=== PATIENT | male | born 1980 | race Caucasian/White ===

== ENCOUNTER 2024-01-10 03:48 | Outpatient (CLI) | payer BC, SELFPAY ==
[2024-01-10 11:38] LABS: PTT Activated 28.8 sec (23.6-32.8)
[2024-01-10 18:07] LABS: Fibrinogen 328 mg/dL (171-384)
[2024-01-11 10:49] LABS: Thrombin Time 13.8 secs (10.3-16.9)
[2024-01-11 10:59] LABS: Factor 11 Assay 83 % (65-150); Factor 2 Assay 106 % (79-131); Factor 5 Assay 115 % (62-139); Factor 9 Assay 116 % (65-150)
[2024-01-11 13:07] LABS: Factor 10 Assay 108 % (77-131)
[2024-01-12 11:56] LABS: Coag FactorVIII Activity Assay 123 % (55 - 200); von Willebrand Factor Activity 73 % (55 - 200); von Willebrand Factor Ag 82 % (55 - 200)
[2024-01-23 09:27] LABS: Factor 13 Antigen 107.2 % (57.1-168.5)
== END 2024-01-10 03:49 | disposition home or self-care (01) ==
PROVIDERS: Visit Provider Internal Medicine Hematology & Oncology
DX: R79.1 Abnormal coagulation profile (principal)
CPT/HCPCS: 36415; 85240; 85246; 85290; 85384; 85385; 85390; 85397; 85670; 85210; 85250; 85260; 85270; 85610; 85730

== ENCOUNTER 2024-01-19 03:41 | PSDC | payer BC, SELFPAY ==
[2024-01-19] VITALS (90 sets, daily range): BP systolic 123–199; BP diastolic 74–147; PULSE 43–73; RESP 8–31; TEMP 36–36.9; O2SAT 89–100; BMI 22.8
--- NOTE | 2024-01-19 03:45 | DI.CT_ITS ---
Exam(s) CT ABDOMEN PELVIS WO EXAM: CT ABDOMEN PELVIS WO CLINICAL HISTORY: suspect right kidney stone. Right flank pain. TECHNIQUE: Imaging Protocol: Axial computed tomography images with coronal and sagittal reformatted images were created and reviewed. COMPARISON: No exams were available for comparison FINDINGS: ABDOMEN: Lung Bases: There is atelectasis in the right lower lobe. Liver: Normal density. The visualized liver is unremarkable. Gallbladder and biliary tract: No radiodense calculus or biliary ductal dilation. Pancreas: Normal density, no abnormal calcifications or inflammatory process. Spleen: The visualized spleen is unremarkable. Kidneys: Normal size, contour and axis.There is bilateral nephrolithiasis. No evidence of left hydro nephrosis. There is a 5 mm stone in the mid right ureter with mild hydronephrosis. There is an inde terminate 6 mm hypodensity in the left kidney. This may represent a cyst. Nonemergent renal ultraso und may be obtained for further evaluation. Adrenal glands: No mass is seen. Lymph nodes: Within normal limits. Abdominal Aorta: Abdominal portion non-dilated. PELVIS: Bladder:Symmetric distention, no gross wall thickening. Bowel: There are few diverticula in the colon, but no evidence of acute diverticulitis. There is a m oderate amount of retained stool in the colon. There are surgical clips seen in the cecum. There is no evidence of bowel obstruction or bowel wall thickening. Peritoneal cavity: No ascites, collection or mesenteric inflammatory response. No free air. Reproductive organs: Unremarkable as visualized. Bones: Within normal limits. Soft Tissues: Within normal limits. IMPRESSION: 5 mm stone in the mid right ureter causing mild hydronephrosis. RADIATION DOSE DELIVERED: Total DLP DATA REPOSITORY: All CT scans at this facility are submitted to the National Radiology Data Registry (NRDR) Dose Index Registry (DIR) with the [employer] (ACR). RADIATION OPTIMIZATION: All CT scans at this facility use at least one of these dose optimization te chniques: automated exposure control; mA and/or kV adjustment per patient size (includes targeted exa ms where dose is matched to clinical indication); or iterative reconstruction.
[2024-01-19] MEDS: MORPHine 4 MG/ML SYR IVP (03:57)
[2024-01-19] MEDS: Ondansetron 4 MG/2 ML VIAL IVP (03:58)
[2024-01-19] MEDS: Normal Saline 1,000 ML 1000 ML IV ×2 (03:58→07:33)
[2024-01-19] MEDS: Tamsulosin 0.4 MG CAPCR 0.8 MG PO (03:58)
[2024-01-19 03:59] LABS: Abs Immature Grans 0.01 10^3/uL (0.0-0.06); Absolute Basophil Count 0.04 10^3/uL (0.0-0.2); Absolute Eosinophil Count 0.16 10^3/uL (0.0-0.7); Absolute Lymphocyte Count 3.17 10^3/uL (1.2-3.4); Absolute Monocyte Count 0.66 10^3/uL (0.1-0.8); Absolute Neutrophil Count 2.08 10^3/uL (1.2-6.7); Basophils % 0.7 %; Eosinophils % 2.6 %; HCT 44.5 % (40.0-50.0); HGB 15.1 g/dL (13.5-17.5); Immature Grans % 0.2 %; Lymphocytes % 51.8 %; MCH 30.7 pg (27.0-33.0); MCHC 33.9 % (32.0-36.0); MCV 90 fL (80-95); MPV 9.7 fL (8.0-11.0); Monocytes % 10.8 %; Neutrophils % 33.9 %; Platelet Count 292 10^3/uL (130-400); RBC 4.92 10^6/uL (4.36-5.78); RDW 11.3 % (11.8-14.1); RDW-SD 37.4 fL; WBC 6.12 10^3/uL (4.4-10.8)
[2024-01-19 04:12] LABS: ALT 25 U/L (16-63); AST 30 U/L (15-37); Albumin 3.6 g/dL (3.4-5.0); Alkaline Phosphatase 74 U/L (46-116); Anion Gap 7.4 mmol/L (3-11); Bilirubin, Total 0.35 mg/dL (0.2-1.0); CO2 30.6 mmol/L (21.0-32.0); Calcium 8.9 mg/dL (8.5-10.1); Chloride 102 mmol/L (98-107); Estimated GFR 96.37 (mL/min/1.73m2); Glucose 107 mg/dL (74-106); Potassium 3.8 mmol/L (3.5-5.1); Sodium 140 mmol/L (136-145); Total Protein 7.1 g/dL (6.4-8.2)
[2024-01-19 04:18] LABS: BUN 16 mg/dL (7-18)
--- NOTE | 2024-01-19 04:24 | ED.GENADUL_ITS ---
Discharge Plan Disposition Patient Disposition: Admit to [facility] Condition: Stable Discharge Details Clinical Impression: Kidney stone on right side Primary Care Provider: Unknown,Unknown ED Provider: Charanjit Christensen Home Meds and New Rx's Prescriptions: No Action dextroamphetamine-amphetamine [Adderall] 15 mg tablet 15 mg PO BID Rx Instructions: administer doses at least 4-6 hours apart buprenorphine [Butrans] 10 mcg/hour patch weekly 1 patch transdermal Q7D HPI General Date/Time Provider Initiated Documentation: 01/19/24 03:47 . HPI Narrative: This is a 43-year-old male with a past medical history of chronic back pain scheduled to get a fusion of his spine, Crohn's disease, inguinal hernia with surgical management, appendectomy, cholecystectomy, previous kidney stone, who usually receives his care at the [facility], but recently moved to the area, presents today via EMS for right flank pain. Patient states that he awoke this evening with sudden onset right flank pain that radiates down to his right groin and genitals. He states that the pain feels similar to when he had his previous kidney stone. He denies any hematuria frequency or burning. He denies vomiting or diarrhea. He states that the pain is constant and severe. He denies numbness tingling or weakness. No urethral discharge. No other complaints at this time. Related Data Home Medications ?Medication ?Instructions ?Recorded ?Confirmed buprenorphine 10 mcg/hour weekly 1 patch transdermal Q7D 01/19/24 01/19/24 transdermal patch (Butrans) dextroamphetamine-amphetamine 15 15 mg PO BID 01/19/24 01/19/24 mg tablet (Adderall) Allergies Allergy/AdvReac Type Severity Reaction Status Date / Time Androgenic Anabolic Steroid Allergy Unknown Verified 01/19/24 05:02 Neuromuscular Blockers, Allergy Unknown Verified 01/19/24 05:02 Steroidal NSAIDS (Non-Steroidal Allergy Unknown Verified 01/19/24 05:02 Anti-Inflamma Sulfa (Sulfonamide Allergy Unknown Verified 01/19/24 05:02 Antibiotics) General Stated Complaint: FlankPain LORETTA: 3 Review of Systems All systems reviewed & are unremarkable except as noted in HPI and below Exam Narrative Exam Narrative: 1.Const: Well-nourished, Well-developed, appearing stated age 2.Eyes: PERRL, no conjunctival injection, and symmetrical lids. 3.ENT: Atraumatic external nose and ears. Moist MM. Neck: Symmetric, trachea midline, No thyromegaly. 4.CVS: +S1/S2, No murmurs or gallops. Peripheral pulses 2+ and equal in all extremities. Brisk capillary refill in all extremities. 5.RESP: Unlabored respiratory effort. Clear to auscultation bilaterally. No wheezes rales or rhonchi 6.GI: Soft, Nontender/Nondistended, No hepatosplenomegaly. No guarding or rebound. No right-sided or left-sided abdominal tenderness. No genital pain or tenderness on palpation. Testicles are unremarkable, penile shaft unremarkable. No urethral discharge. 7.MSK: Normocephalic/Atraumatic, Extremities w/o deformity or ttp No cyanosis or clubbing, Normal movement of all extremities 8.Skin: Warm, Dry. No rashes or lesions. 9.Neuro: systems coordinator II-XII grossly intact. Sensation grossly intact, no focal neurologic deficits. 10.Psych: (AAO) x3. Appropriate mood and affect Course Vital Signs Vital signs: Vital Signs Temperature 36.4 C L 01/19/24 03:42 Pulse 64 01/19/24 03:42 Respiratory Rate 16 01/19/24 03:42 Blood Pressure 149/75 H 01/19/24 03:42 Pulse Oximetry 100 01/19/24 03:42 Temperature 36.4 C L 01/19/24 03:42 Pulse 64 01/19/24 03:42 Respiratory Rate 16 01/19/24 03:42 Respiratory Effort Normal 01/19/24 03:47 Blood Pressure 149/75 H 01/19/24 03:42 Pulse Oximetry 100 01/19/24 03:42 Oxygen Delivery Method Room Air 01/19/24 03:42 Oxygen Flow Rate 0 01/19/24 03:42 Pain Level 10 01/19/24 03:42 Lab/Test Results Lab/Test Results: Laboratory Tests Range/Units 01/19/24 03:51 WBC (4.4-10.8) 10^3/uL 6.12 RBC (4.36-5.78) 10^6/uL 4.92 Hgb (13.5-17.5) g/dL 15.1 Hct (40.0-50.0) % 44.5 MCV (80-95) fL 90 MCH (27.0-33.0) pg 30.7 MCHC (32.0-36.0) % 33.9 RDW (11.8-14.1) % 11.3 L Plt Count (130-400) 10^3/uL 292 MPV (8.0-11.0) fL 9.7 Immature Gran % % 0.2 Neutrophils % % 33.9 Lymphocytes % % 51.8 Monocytes % % 10.8 Eosinophils % % 2.6 Basophils % % 0.7 Nucleated RBC % (0.0-0.3) % 0.0 Absolute Neutrophils (1.2-6.7) 10^3/uL 2.08 Absolute Lymphocytes (1.2-3.4) 10^3/uL 3.17 Absolute Monocytes (0.1-0.8) 10^3/uL 0.66 Absolute Eosinophils (0.0-0.7) 10^3/uL 0.16 Absolute Basophils (0.0-0.2) 10^3/uL 0.04 Sodium (136-145) mmol/L 140 Potassium (3.5-5.1) mmol/L 3.8 Chloride (98-107) mmol/L 102 Carbon Dioxide (21.0-32.0) mmol/L 30.6 Anion Gap (3-11) mmol/L 7.4 BUN (7-18) mg/dL 16 Creatinine (0.70-1.30) mg/dL 1.0 Est GFR (CKD-EPI 2020) (mL/min/1.73m2) 96.37 Glucose (74-106) mg/dL 107 H Calcium (8.5-10.1) mg/dL 8.9 Total Bilirubin (0.2-1.0) mg/dL 0.35 AST (15-37) U/L 30 ALT (16-63) U/L 25 Alkaline Phosphatase (46-116) U/L 74 Total Protein (6.4-8.2) g/dL 7.1 Albumin (3.4-5.0) g/dL 3.6 Medical Decision Making This is a 43-year-old male with a past medical history of chronic back pain scheduled to get a fusion of his spine, Crohn's disease, inguinal hernia with surgical management, appendectomy, cholecystectomy, previous kidney stone, who usually receives his care at the [facility], but recently moved to the area, presents today via EMS for right flank pain. Patient states that he awoke this evening with sudden onset right flank pain that radiates down to his right groin and genitals. He states that the pain feels similar to when he had his previous kidney stone. He denies any hematuria frequency or burning. He denies vomiting or diarrhea. He states that the pain is constant and severe. He denies numbness tingling or weakness. No urethral discharge. No other complaints at this time. Exam demonstrates male that is in pain, vital signs stable, no abdominal tenderness on exam, no genital tenderness. Symptoms most concerning for urolithiasis. Will give Flomax, Toradol, morphine, rehydrate, get a CT scan monitor closely and reassess. 6:30 AM Laboratory workup shows stable renal function, no white count, urinalysis is negative for infection. CT scan shows evidence of a 6 mm obstructing stone in the mid right ureter causing mild obstructive uropathy. Pain was not controlled with Tylenol/Jai Mab for Flomax. Patient refused Toradol as he states he does have an allergy. Dilaudid was administered with only mild pain improvement. We will administer a second episode of Dilaudid for total of 2 mg. Patient has urinated, there is a very small garo that came out, but certainly no 6 mm stone. I did discuss the case with Dr. Lerma of urology, we will continue to attempt to manage the pain control, but if we cannot find good resolution for this, and the patient may require stenting. 7:30 AM Patient still has notable pain even after 2 mg of Dilaudid, Ofirmev and Flomax. He does not feel comfortable going home. I discussed the case with Dr. Lerma, he has elected to place a stent for the patient. Patient will remain down here in the emergency department until he can be dispositioned to the OR for stent placement. I have extensively reviewed the treatment plan with the patient. I have addressed all patient concerns at this time. I have also discussed the plan with the admitting physician and they agree with the current assessment and plan and have agreed to assume responsibility for the patient. All parties demonstrate verbal understanding and agreement with our assessment and plan at this time. The documentation in this chart was dictated using Pad[employer] dictation software. Please excuse any dictation errors. FINDINGS: Liver: Normal. No mass. Gallbladder and biliary ducts: Normal. No calcified stones. No ductal dilation. Pancreas: Unremarkable. Spleen: Normal. Adrenal glands: Normal. No mass. Kidneys and ureters: Small incidental left renal cyst. 6 mm obstructing stone in the mid right ureter causing mild obstructive uropathy. Nonobstructing stones in the kidneys bilaterally. Stomach and bowel: Chronic postsurgical changes of the bowel. Stool throughout the colon, minimally distended, potentially signifying constipation. No bowel wall thickening or intestinal obstruction. Appendix: Appendix not visualized. No evidence of appendicitis. Intraperitoneal space: Unremarkable. No pneumoperitoneum. No abscess. Vasculature: Unremarkable. Lymph nodes: Unremarkable. Urinary bladder: Unremarkable as visualized. Reproductive: Unremarkable as visualized. Bones/joints: Unremarkable. No acute fracture. Soft tissues: Unremarkable. IMPRESSION: 1. 6 mm obstructing stone in the mid right ureter causing mild obstructive uropathy. 2. Stool throughout the colon, minimally distended, potentially signifying constipation. Thank you for allowing us to participate in the care of your patient. Dictated and Authenticated by: Juan Cabral MD 01/19/2024 5:33 AM Eastern Time ([place] & [place]) Quality:SDOH Health Related Social Needs: No Data to Display PFSH All Active Problems (Updated 01/19/24 @ 07:23 by Charanjit Christensen DO) Kidney stone on right side (Acute) Social History Smoking risk assessment performed?: No
[2024-01-19] MEDS: HYDROmorphone 2 MG/ML SYR 1 MG IVP ×2 (04:57→06:33)
[2024-01-19] MEDS: ACETAMINOPHEN 1,000 MG/100 ML BTL 400 MG IVPB (04:57)
[2024-01-19 05:11] LABS: Bilirubin Negative (Negative); Blood Moderate (Negative); Clarity Clear (Clear); Glucose Negative (Negative); Ketones Negative (Negative); Leukocyte Esterase Negative (Negative); Nitrite Negative (Negative); Urobilinogen 0.2 mg/dL (Up to 0.2); pH 7.5 (5-8)
[2024-01-19 05:13] LABS: Bacteria Rare HPF (Negative); C & S Indicated? No; Casts Negative LPF (Negative); Crystals Negative HPF (Negative); Epithelial Cells Rare HPF (Negative); Mucus Negative (Negative); WBC Negative HPF (0-5)
--- NOTE | 2024-01-19 05:33 | DI.VRAD_ITS ---
PROCEDURE INFORMATION: Exam: CT Abdomen And Pelvis Without Contrast Exam date and time: 01/19/2024 4:10 AM Age: 43 years old Clinical indication: Abdominal pain; Flank; Right; Additional info: Suspect right kidney stone. Right flank pain TECHNIQUE: Imaging protocol: Computed tomography of the abdomen and pelvis without contrast. COMPARISON: No relevant prior studies available. FINDINGS: Liver: Normal. No mass. Gallbladder and biliary ducts: Normal. No calcified stones. No ductal dilation. Pancreas: Unremarkable. Spleen: Normal. Adrenal glands: Normal. No mass. Kidneys and ureters: Small incidental left renal cyst. 6 mm obstructing stone in the mid right ureter causing mild obstructive uropathy. Nonobstructing stones in the kidneys bilaterally. Stomach and bowel: Chronic postsurgical changes of the bowel. Stool throughout the colon, minimally distended, potentially signifying constipation. No bowel wall thickening or intestinal obstruction. Appendix: Appendix not visualized. No evidence of appendicitis. Intraperitoneal space: Unremarkable. No pneumoperitoneum. No abscess. Vasculature: Unremarkable. Lymph nodes: Unremarkable. Urinary bladder: Unremarkable as visualized. Reproductive: Unremarkable as visualized. Bones/joints: Unremarkable. No acute fracture. Soft tissues: Unremarkable. IMPRESSION: 1. 6 mm obstructing stone in the mid right ureter causing mild obstructive uropathy. 2. Stool throughout the colon, minimally distended, potentially signifying constipation. Dictated and Authenticated by: Juan Cabral MD. Ordering:SARABJIT Donohue MD
--- NOTE | 2024-01-19 07:49 | HPE_ITS ---
Date of service: 01/19/24 Time of Service: 07:49 Assessment and Plan Assessment and plan (1) Kidney stone on right side: Status: Acute Assessment and plan: We have not been able to achieve adequate pain control for this gentleman, so we will bring him to the OR for cystoscopy and stent placement. We will not attempt ureteroscopy today, but we will plan a return trip to the OR for ureteroscopy and holmium laser lithotripsy of his stone. History of Present Illness History of Present Illness Chief Complaint: Right ureteral stone Narrative: This is a 43-year-old gentleman who has a recently moved to our area. He has previously received his medical care through the [facility] system. He has a history of Crohn's disease and urolithiasis. He has required ureteral stenting in the past, but has not required ureteroscopy. He presented to the emergency department overnight with an acute onset of right sided flank pain. He has no fever or chills. His imaging demonstrates multiple nonobstructing stones along with a 6 mm mid right ureteral stone that is causing significant obstruction. He has not shown any signs of sepsis or renal failure, but we have not been able to get pain control. He is agreeable to placement of a ureteral stent with plans to return to the OR for ureteroscopy and holmium laser lithotripsy of his stones at a later date. Review of Systems Narrative: No fevers or chills No vision change or dysphasia No diabetes or thyroid dysfunction No shortness of breath, cough or hemoptysis No chest pain or palpitations No hepatitis, ulcers, jaundice No seizures or strokes Bleeding disorder - no specific diagnosis yet Chronic back pain - will need back surgery at [facility]. [facility] All Active Problems (Updated 01/19/24 @ 07:52 by Vinh Lerma MD) Kidney stone on right side (Acute) Medical History (Updated 01/19/24 @ 07:52 by Vinh Lerma MD) Chronic back pain Bleeding disorder Crohn's disease Surgical History (Updated 01/19/24 @ 07:57 by Vinh Lerma MD) H/O inguinal hernia repair S/P cystoscopy with ureteral stent placement Hx of cholecystectomy History of appendectomy Social History Smoking risk assessment performed?: No Meds Allergies and Home Medications Allergies Allergy/AdvReac Type Severity Reaction Status Date / Time Androgenic Anabolic Steroid Allergy Unknown Verified 01/19/24 05:02 Neuromuscular Blockers, Allergy Unknown Verified 01/19/24 05:02 Steroidal NSAIDS (Non-Steroidal Allergy Unknown Verified 01/19/24 05:02 Anti-Inflamma Sulfa (Sulfonamide Allergy Unknown Verified 01/19/24 05:02 Antibiotics) Home Medications ?Medication ?Instructions ?Recorded ?Confirmed ?Type buprenorphine 10 mcg/hour weekly 1 patch transdermal Q7D 01/19/24 01/19/24 History transdermal patch (Butrans) dextroamphetamine-amphetamine 15 15 mg PO BID 01/19/24 01/19/24 History mg tablet (Adderall) Exam Narrative Exam Narrative: He appears uncomfortable His vital signs are documented elsewhere His chest wall motion is normal. He is not short of breath at rest. His lungs are clear Cardiac exam shows a regular rate and rhythm His abdomen is soft with no guarding or rebound tenderness He is awake and alert Results Imaging Imaging Studies: I reviewed his CT scan on the PACS system. He has multiple nonobstructing stones in both kidneys. There is a relatively large stone in the mid right ureter with significant hydronephrosis. Labs 01/19/24 03:51 01/19/24 03:51 Labs: Laboratory Results - last 24 hr 01/19/24 01/19/24 03:51 04:57 WBC 6.12 RBC 4.92 Hgb 15.1 Hct 44.5 MCV 90 MCH 30.7 MCHC 33.9 RDW 11.3 L Plt Count 292 MPV 9.7 Immature Gran % 0.2 Neutrophils % 33.9 Lymphocytes % 51.8 Monocytes % 10.8 Eosinophils % 2.6 Basophils % 0.7 Nucleated RBC % 0.0 Absolute Neutrophils 2.08 Absolute Lymphocytes 3.17 Absolute Monocytes 0.66 Absolute Eosinophils 0.16 Absolute Basophils 0.04 Sodium 140 Potassium 3.8 Chloride 102 Carbon Dioxide 30.6 Anion Gap 7.4 BUN 16 Creatinine 1.0 Est GFR (CKD-EPI 2020) 96.37 Glucose 107 H Calcium 8.9 Total Bilirubin 0.35 AST 30 ALT 25 Alkaline Phosphatase 74 Total Protein 7.1 Albumin 3.6 Urine Color Yellow Urine Clarity Clear Urine pH 7.5 Ur Specific [place] 1.020 Urine Protein Negative Urine Ketones Negative Urine Blood Moderate H Urine Nitrite Negative Urine Bilirubin Negative Urine Urobilinogen 0.2 Ur Leukocyte Esterase Negative Urine RBC 5-10 H Urine WBC Negative Ur Epithelial Cells Rare Urine Crystals Negative Urine Bacteria Rare Urine Casts Negative Urine Mucus Negative Ur Culture Indicated? No Urine Glucose Negative Last Vital Signs Temp 36.4 C L 01/19/24 03:42 Pulse 64 01/19/24 03:42 Resp 16 01/19/24 03:42 BP 149/75 H 01/19/24 03:42 Pulse Ox 100 01/19/24 03:42 Time Spent Time spent with Patient: <40 minutes Time was spent: preparing to see the patient(eg.review tests), obtaining and/or reviewing separately otained hiistory, ordering medications,tests, procedures, referring, communicating with other health career development specialist, indepentently interpreting results and care coordination
--- NOTE | 2024-01-19 07:53 | ANES.PREOP_ITS ---
General Info Date of Service Date Performed: 01/19/24 Height: 5 ft 9 in Weight: 70.307 kg Body Mass Index (BMI): 22.8 Surgical Procedure: Operation Date: 01/19/24 09:10 Proposed Procedure Side Surgeon p Cystoscopy/Retrograde/Stent Placement Right Vinh Lerma MD Meds Allergies and Home Medications Allergies Allergy/AdvReac Type Severity Reaction Status Date / Time Androgenic Anabolic Steroid Allergy Unknown Verified 01/19/24 05:02 Neuromuscular Blockers, Allergy Unknown Verified 01/19/24 05:02 Steroidal NSAIDS (Non-Steroidal Allergy Unknown Verified 01/19/24 05:02 Anti-Inflamma Sulfa (Sulfonamide Allergy Unknown Verified 01/19/24 05:02 Antibiotics) Home Medication ?Medication ?Instructions ?Recorded buprenorphine 10 mcg/hour weekly 1 patch transdermal Q7D 01/19/24 transdermal patch (Butrans) dextroamphetamine-amphetamine 15 15 mg PO BID 01/19/24 mg tablet (Adderall) Current Visit Medications: Current Medications Generic Name Dose Route Start Last Admin Trade Name Freq PRN Reason Stop Dose Admin Sodium Chloride 1,000 mls @ 1,000 mls/hr 01/19/24 07:23 01/19/24 07:33 Saline 1000ml Bag IV 01/19/24 08:22 1,000 mls/hr BOLUS ONE Administration PFSH Active Problems Active Problems: Problem Status Onset Code Kidney stone on right side Acute N20.0 Medical History Medical History (Updated 01/19/24 @ 07:52 by Vinh Lerma MD) Chronic back pain Bleeding disorder Crohn's disease Surgical History Surgical History (Updated 01/19/24 @ 07:57 by Vinh Lerma MD) H/O inguinal hernia repair S/P cystoscopy with ureteral stent placement Hx of cholecystectomy History of appendectomy Tobacco Smoking/Tobacco Use Status: Current-Occasional Tobacco Type: smokeless tobacco Alcohol Alcohol Intake: current Alcohol intake frequency: 0-2 drinks per day Alcohol type: beer Substance Use Substance use: Never Vital Signs and Lab Results Vital Signs Most Recent Vital Signs in EMR: Most Recent Vital Signs Temp Pulse Resp BP Pulse Ox 36.4 C L 64 16 149/75 H 100 01/19/24 03:42 01/19/24 03:42 01/19/24 03:42 01/19/24 03:42 01/19/24 03:42 Lab Results 01/19/24 03:51 08/16/24 03:51 Blood Type / Crossmatch: 2 No Data to Display Complete Blood Count: 2 White Blood Count 6.12 10^3/uL (4.4-10.8) 01/19/24 03:51 Red Blood Count 4.92 10^6/uL (4.36-5.78) 01/19/24 03:51 Hemoglobin 15.1 g/dL (13.5-17.5) 01/19/24 03:51 Hematocrit 44.5 % (40.0-50.0) 01/19/24 03:51 Platelet Count 292 10^3/uL (130-400) 01/19/24 03:51 Complete Metabolic Panel: 2 Sodium 140 mmol/L (136-145) 01/19/24 03:51 Potassium 3.8 mmol/L (3.5-5.1) 01/19/24 03:51 Chloride 102 mmol/L (98-107) 01/19/24 03:51 Carbon Dioxide 30.6 mmol/L (21.0-32.0) 01/19/24 03:51 BUN 16 mg/dL (7-18) 01/19/24 03:51 Creatinine 1.0 mg/dL (0.70-1.30) 01/19/24 03:51 Est GFR (CKD-EPI 2020) 96.37 (mL/min/1.73m2) 01/19/24 03:51 Calcium 8.9 mg/dL (8.5-10.1) 01/19/24 03:51 Albumin 3.6 g/dL (3.4-5.0) 01/19/24 03:51 Glucose 107 mg/dL (74-106) H 01/19/24 03:51 Liver Function Panel: 2 Alanine Aminotransferase (ALT/SGPT) 25 U/L (16-63) 01/19/24 03: 51 Aspartate Amino Transf (AST/SGOT) 30 U/L (15-37) 01/19/24 03:51 Coagulation Panel: 2 INR International Normalized Ratio 1.0 (0.9-1.1) 01/10/24 11:0 0 Prothrombin Time 10.0 sec (9.1-11.1) 01/10/24 11:00 Activated Partial Thromboplast Time 28.8 sec (23.6-32.8) 11:00 Fibrinogen 328 mg/dL (171-384) 01/10/24 11:00 Cardiac Panel: 2 No Data to Display Arterial Blood Gas: 2 No Data to Display Venous Blood Gas: 2 No Data to Display Pancreas Panel: 2 No Data to Display Thyroid Panel: 2 No Data to Display Infectious Disease: 2 No Data to Display Blood Cultures: 2 No Data to Display Toxicology Panel: 2 No Data to Display Anesthesia Assessment and Plan Anesthesia History Personal History: No History of Anesthesia Complications Family History: No Family History of Anesthesia Complications Exercise Tolerance Exercise Tolerance: Metabolic Equivalents>4 Pertinent Negatives Pertinent Negatives: No Symptoms of GERD, No Major Cardiovascular Symptoms or Complaints, No Major Pulmonary Symptoms or Complaints and No History of CVA/TIA Cardiac & Pulmonary Exam Cardiac Exam: Normal S1/S2 Heart Sounds Pulmonary Exam: Clear Bilateral Breath Sounds Implantable Cardiac Device Does patient have a Pacemaker or an ICD?: No Airway Exam Known Difficult Airway: No Mallampati Class: 2 Mouth Opening: Normal (> 3cm) Thyromental Distance: Greater than 3 cm Neck Range of Motion: Full ROM Neck Circumference: Normal Teeth Condition: Normal Dentition ASA Classification ASA Score: ASA 3 Emergency Case?: No NPO Status NPO Status: NPO Clears >2 hours, Solids >8 hours Anesthesia Plan Resuscitation Status: Full Code Anesthesia Technique: General Anesthesia Airway Planned: Endotracheal Tube Monitors Used: Standard Monitors Preoperative Comments:: This is a 43-year-old male with a past medical history of chronic back pain scheduled to get a fusion of his spine, Crohn's disease, inguinal hernia with surgical management, appendectomy, cholecystectomy, previous kidney stone, who usually receives his care at the [facility], but recently moved to the area, presents today via EMS for right flank pain. Additionally patient denies allergy to steroidal neuromuscular blocking medications. He also states his blood clotting disorder is managed with medication, but also does not have a diagnosis at this time. States it is none of the Obvious ones.
[2024-01-19] MEDS: Lactated Ringers 1,000 ML 30 ML IV (08:44)
[2024-01-19] MEDS: Lidocaine 2% Jelly 11 ML SYR (09:09)
[2024-01-19] MEDS: Omnipaque 300 MG/ML 50 ML BTL (09:09)
[2024-01-19] MEDS: ceFAZolin 2 GM/50 ML BAG 100 GM (09:09)
--- NOTE | 2024-01-19 09:17 | DI.RAD_ITS ---
Exam(s) XR RETROGRADE IN OR EXAM: XR RETROGRADE IN OR CLINICAL HISTORY: Right ureteral stone TECHNIQUE: 2D and realtime digital imaging was performed. CONTRAST MATERIAL: Refer to procedure report. COMPARISON: CT CT ABDOMEN PELVIS WO from 01/19/2024 FINDINGS: Fluoroscopy was provided for Dr. Lerma during the performance of a evaluation of the right renal col lecting system. Please refer to the procedure report for complete details. Ka,r=2.58 mGy IMPRESSION: RADIATION DOSE DELIVERED: 0.0 0.0 0
--- NOTE | 2024-01-19 09:28 | W.PM.OP ---
Date of service: 01/19/24 Time of Service: 09:28 Operative Note Operative Note DATE OF PROCEDURE: 01/19/24 PRE-OP DIAGNOSIS: Right ureteral stone POST-OP DIAGNOSIS: same PROCEDURE: cystoscopy, right retrograde pyelogram, insert right ureteral stent SURGEON: Vinh Lerma ANESTHESIA TYPE: Local By Surgeon and General:No Airway Refer to Anesthesia Record ESTIMATED BLOOD LOSS: 5 PATHOLOGY: none sent COMPLICATIONS: None Patient was transported to: PACU Patient's condition: stable Implants: 6 Estonian by 22 to 30 cm right ureteral stent Indications: This is a 43-year-old gentleman who has a past history of kidney stones. He has received his previous care through providers at the [facility]. He recently relocated to our area and presented to the emergency department last evening with renal colic. He was found to have a right mid ureteral stone with hydronephrosis. He had no signs of sepsis, but his pain could not be well-controlled. He is brought to the operating room urgently for stent placement. Findings: right ureteral stone with hydronephrosis Procedure Description: The patient was transferred from the emergency department to the operating room. He was given a dose of IV antibiotics. After successful induction of general anesthesia, he was placed in the dorsal lithotomy position. His genitalia was prepped and draped. 2% Xylocaine jelly was instilled into the urethra to act as a local anesthetic. A 22 Estonian rigid cystoscope was passed through the urethra into the bladder. The urethra and bladder were inspected with the 30 degree lens. The right ureteral orifice was visualized and was cannulated with a 5 Estonian access catheter. Retrograde pyelogram was obtained by injecting Omnipaque through the access catheter under fluoroscopic guidance. There is a filling defect in the mid to distal right ureter with a dilated ureter above the level of the filling defect. I was able to pass a guidewire through the access catheter and advance the wire up the remainder of the ureter. The access catheter was then removed. A 6 Estonian variable length stent was advanced over the wire. The proximal end of the stent was curled in the renal pelvis and the distal end was curled in the bladder. Once the stent was placed, a hydronephrotic drip was identified from the right kidney. The patient tolerated the procedure well with no complications. He will be brought back to the operating room at a later date for ureteroscopy and holmium laser lithotripsy of his stone.
--- NOTE | 2024-01-19 09:34 | W.PM.DSUDISC ---
Date of service: 01/19/24 Time of Service: 09:34 Discharge Plan Disposition Other Facility: Home Condition: Stable Condition: Stable Discharge Details Reason For Visit: Martín Attending Provider: Batool Conteh Primary Care Provider: Unknown,Unknown Home Meds and New Rx's Prescriptions: New hydromorphone [Dilaudid] 4 mg tablet 4 mg PO Q6H MDD 4 PRN (Reason: pain) Qty: 12 0RF Rx Instructions: may take along with tylenol No Action dextroamphetamine-amphetamine [Adderall] 15 mg tablet 15 mg PO BID Rx Instructions: administer doses at least 4-6 hours apart buprenorphine [Butrans] 10 mcg/hour patch weekly 1 patch transdermal Q7D Discharge Instructions Additional Instructions: My office will contact the patient for his next outpatient surgery (ureteroscopy and holmium laser lithotripsy of his ureteral stone) I have sent in a prescription for Dilaudid for pain control Activity:: Activity as Tolerated Shower/Bathe:: 24 hours Activity:: Activity as Tolerated Diet:: As Tolerated Discharge Orders Discharge Orders: Discharge Order (Routine); Ordered 01/19/24 Ordered By: Vinh Lerma DS: Diagnosis Discharge Diagnosis (1) Kidney stone on right side: Status: Acute
[2024-01-19] MEDS: fentaNYL 100 MCG/2 ML VIAL IVP ×2 (09:57→10:11)
[2024-01-19] MEDS: LORazepam 2 MG/ML VIAL 0.5 MG IVP (10:05)
[2024-01-19] MEDS: HYDROmorphone 2 MG/ML SYR IVP ×2 (10:22→10:39)
[2024-01-19] MEDS: Phenazopyridine 200 MG TAB PO (11:03)
--- NOTE | 2024-01-19 12:23 | W.ANESPOSTOP ---
Postoperative Evaluation Date, Time and Location Date Performed: 01/19/24 Time Performed: 12:23 Patient Location: Day Surgery Unit Vital Signs Most Recent Imported Vital Signs: Most Recent Vital Signs Temp Pulse Resp BP Pulse Ox 36 C L 56 L 16 144/87 H 99 01/19/24 12:05 01/19/24 12:05 01/19/24 12:05 01/19/24 12:05 01/19/24 12:05 Pain Score Most Recent Pain Score: Most Recent Pain Score Pain Level 5 01/19/24 11:33 Assessment Mental Status: Awake (Alert & Oriented to Patient Baseline) Airway and Respiratory Function: Patent airway with normal (patient baseline) respiratory exam Cardiovascular Function: Hemodynamically Stable Hydration Status: Adequately Hydrated Nausea & Vomiting: No Nausea or Vomiting Pain: Pain is tolerable per patient Peripheral Nerve Block: Patient did not receive a nerve block
== END 2024-01-19 12:48 | disposition home or self-care (01) ==
LOC: ER 08:37 → DSU 08:41
PROVIDERS: Urology; Emergency Provider Student in an Organized Health Care Education/Training Program; Visit Provider Surgery
PROC: (CPT 74450; principal; 2024-01-19 09:00)
DX: N20.1 Calculus of ureter (principal); K50.90 Crohn's disease, unspecified, without complications; G89.29 Other chronic pain; M54.9 Dorsalgia, unspecified
CPT/HCPCS: 52332; 80053; 74176; 74420; 81003; 81015; 85025; J0131; J0690; J1100; J1170; J2001; J2060; J2250; J2270; J2405; J2704; J3010; Q9967

== ENCOUNTER 2024-01-25 08:41 | Day surgery (SDC) | payer BC, SELFPAY ==
[2024-01-25] VITALS (22 sets, daily range): BP systolic 115–141; BP diastolic 74–103; PULSE 46–81; RESP 8–23; TEMP 36.3–36.8; O2SAT 98–100; BMI 20.5
[2024-01-25] MEDS: Lactated Ringers 1,000 ML 80 ML IV (09:28)
--- NOTE | 2024-01-25 10:49 | W.ANESPRE ---
General Info Date of Service Date Performed: 01/25/24 Height: 5 ft 9 in Weight: 63.2 kg Body Mass Index (BMI): 20.5 Surgical Procedure: Operation Date: 01/25/24 10:40 Proposed Procedure Side Surgeon p Cystoscopy/Laser/Retrograde/Ureteroscopy/Stent removal Vinh Lerma MD Meds Allergies and Home Medications Allergies Allergy/AdvReac Type Severity Reaction Status Date / Time Androgenic Anabolic Steroid Allergy Unknown Verified 01/25/24 09:07 Neuromuscular Blockers, Allergy Unknown Verified 01/25/24 09:07 Steroidal NSAIDS (Non-Steroidal Allergy Other (See Verified 01/25/24 09:07 Anti-Inflamma Comment) Sulfa (Sulfonamide Allergy Skin Rash Verified 01/25/24 09:07 Antibiotics) Home Medication ?Medication ?Instructions ?Recorded buprenorphine 10 mcg/hour weekly 1 patch transdermal Q7D 01/19/24 transdermal patch (Butrans) dextroamphetamine-amphetamine 15 15 mg PO BID 01/19/24 mg tablet (Adderall) naloxone 4 mg/actuation nasal 4 mg intranasal Q2M PRN opioid 01/19/24 spray (Narcan) overdose #2 ea hydromorphone 4 mg tablet 4 mg PO Q6H PRN pain #12 tabs 01/22/24 (Dilaudid) lorazepam 0.5 mg tablet (Ativan) 0.5 mg PO TID PRN anxiety #10 tabs 01/22/24 phenazopyridine 200 mg tablet 200 mg PO TID #20 tabs 01/22/24 (Pyridium) polyethylene glycol 3350 17 8.5 g PO DAILY PRN 01/23/24 gram/dose oral powder (Miralax) acetaminophen 500 mg capsule 1,000 mg PO Q6H PRN 01/25/24 penicillin V potassium 500 mg 500 mg PO QID 01/25/24 tablet Current Visit Medications: Current Medications Generic Name Dose Route Start Last Admin Trade Name Freq PRN Reason Stop Dose Admin Ringer's Solution 1,000 mls @ 80 mls/hr 01/25/24 06:00 01/25/24 09:28 IV 01/25/24 23:59 80 mls/hr INFUSION MARÍA ELENA Administration Cefazolin Sodium/Dextrose 2 gm in 50 mls @ 100 mls/hr 01/25/24 06:00 Ancef Duplex IVPB 01/25/24 23:59 PREOP MARÍA ELENA IV Miscellaneous Supplies 1 each 01/25/24 06:00 Iv Access IV 01/25/24 23:59 DIRECTED MARÍA ELENA Sodium Chloride 0 ml 01/25/24 06:00 Normal Saline Flush 10 Ml Syr IV 01/25/24 23:59 PRN PRN Sodium Chloride 0 ml 01/25/24 06:00 Normal Saline 10 Ml Vial IJ 01/25/24 23:59 DIRECTED PRN Sterile Water 0 ml 01/25/24 06:00 Water,Injection,Sterile 10 Ml Vial IJ 01/25/24 23:59 DIRECTED PRN PFSH Active Problems Active Problems: Problem Status Onset Code Kidney stone on right side Acute N20.0 Medical History Medical History Ulcerative colitis Chronic pain Neck and back pain IgA nephropathy Bleeding disorder ISTH BAT score of 7 Crohn's disease Surgical History Surgical History History of bowel resection S/P cystoscopy with ureteral stent placement H/O inguinal hernia repair inguinal and umbilical repair with mesh. Hx of cholecystectomy History of appendectomy Tobacco Smoking/Tobacco Use Status: Current-Occasional Tobacco Type: e-cigarettes Alcohol Alcohol Intake: current Alcohol intake frequency: 0-2 drinks per day Alcohol type: beer Substance Use Substance use: Never Substance use type: does not use Vital Signs and Lab Results Vital Signs Most Recent Vital Signs in EMR: Most Recent Vital Signs Temp Pulse Resp BP Pulse Ox 36.3 C L 81 16 141/103 H 98 01/25/24 09:09 01/25/24 09:09 01/25/24 09:09 01/25/24 09:09 01/25/24 09:09 Lab Results Blood Type / Crossmatch: No Data to Display Complete Blood Count: White Blood Count 6.12 10^3/uL (4.4-10.8) 01/19/24 03:51 Red Blood Count 4.92 10^6/uL (4.36-5.78) 01/19/24 03:51 Hemoglobin 15.1 g/dL (13.5-17.5) 01/19/24 03:51 Hematocrit 44.5 % (40.0-50.0) 01/19/24 03:51 Platelet Count 292 10^3/uL (130-400) 01/19/24 03:51 Complete Metabolic Panel: Sodium 140 mmol/L (136-145) 01/19/24 03:51 Potassium 3.8 mmol/L (3.5-5.1) 01/19/24 03:51 Chloride 102 mmol/L (98-107) 01/19/24 03:51 Carbon Dioxide 30.6 mmol/L (21.0-32.0) 01/19/24 03:51 BUN 16 mg/dL (7-18) 01/19/24 03:51 Creatinine 1.0 mg/dL (0.70-1.30) 01/19/24 03:51 Est GFR (CKD-EPI 2020) 96.37 (mL/min/1.73m2) 01/19/24 03:51 Calcium 8.9 mg/dL (8.5-10.1) 01/19/24 03:51 Albumin 3.6 g/dL (3.4-5.0) 01/19/24 03:51 Glucose 107 mg/dL (74-106) H 01/19/24 03:51 Liver Function Panel: Alanine Aminotransferase (ALT/SGPT) 25 U/L (16-63) 01/19/24 03:51 Aspartate Amino Transf (AST/SGOT) 30 U/L (15-37) 01/19/24 03:51 Coagulation Panel: INR International Normalized Ratio 1.0 (0.9-1.1) 01/10/24 11:00 Prothrombin Time 10.0 sec (9.1-11.1) 01/10/24 11:00 Activated Partial Thromboplast Time 28.8 sec (23.6-32.8) 01/10/24 11:00 Fibrinogen 328 mg/dL (171-384) 01/10/24 11:00 Cardiac Panel: No Data to Display Arterial Blood Gas: No Data to Display Venous Blood Gas: No Data to Display Pancreas Panel: No Data to Display Thyroid Panel: No Data to Display Infectious Disease: No Data to Display Blood Cultures: No Data to Display Toxicology Panel: No Data to Display Anesthesia Assessment and Plan Anesthesia History Personal History: No History of Anesthesia Complications Family History: No Family History of Anesthesia Complications Exercise Tolerance Exercise Tolerance: Metabolic Equivalents>4 Pertinent Negatives Pertinent Negatives: No Symptoms of GERD, No Major Cardiovascular Symptoms or Complaints, No Major Pulmonary Symptoms or Complaints and No History of CVA/TIA Cardiac & Pulmonary Exam Cardiac Exam: Normal S1/S2 Heart Sounds Pulmonary Exam: Clear Bilateral Breath Sounds Implantable Cardiac Device Does patient have a Pacemaker or an ICD?: No Airway Exam Known Difficult Airway: No Mallampati Class: 2 Mouth Opening: Normal (> 3cm) Thyromental Distance: Greater than 3 cm Neck Range of Motion: Full ROM Neck Circumference: Normal Teeth Condition: Normal Dentition, Removable Dentures/Plates Upper (partial) and Removable Dentures/Plates Lower (partial) ASA Classification ASA Score: ASA 2 Emergency Case?: No NPO Status NPO Status: NPO Clears >2 hours, Solids >8 hours Anesthesia Plan Resuscitation Status: Full Code Anesthesia Technique: General Anesthesia Airway Planned: Natural Airway Monitors Used: Standard Monitors Preoperative Comments:: Tooth abscess being treated currently with PCN. Surgeon aware. OK to proceed.
--- NOTE | 2024-01-25 11:10 | W.PM.HP.N ---
Date of service: 01/25/24 Time of Service: 11:11 Assessment and Plan Assessment and plan (1) Kidney stone on right side: Status: Acute Assessment and plan: He has been started on penicillin for dental infection, but he is not febrile. We have changed his antibiotic coverage from Ancef to gentamicin 120 mg IV. We will go ahead and perform cystoscopy and remove his ureteral stent. We would do a retrograde pyelogram and ureteroscopy to address his ureteral stone if it is still present. History of Present Illness History of Present Illness Chief Complaint: Right ureteral stone Narrative: This is a 43-year-old gentleman who has a long history of recurrent urolithiasis. He believes his stones have been calcium oxalate in composition. All of his previous stones have been treated elsewhere. He presented to our emergency department last week with an acute onset of right flank pain. He had an obstructing right mid ureteral stone. His pain could not be controlled in the emergency department, so he was brought to the operating room and a stent was placed. Since the stent was placed, he has passed multiple small stones. He does not believe that he passed a larger sized stone that was identified on CT scan. He presents now for ureteroscopy. Review of Systems Narrative: No fevers or chills Tooth infection - now on PCN. No vision change or dysphasia No diabetes or thyroid dysfunction No shortness of breath, cough or hemoptysis No chest pain or palpitations History of Crohn's disease. Constipation. No hepatitis, ulcers, jaundice No seizures Possible bleeding disorder. He has required transfusions with prior open surgery/percutaneous biopsies Chronic spine pain - sees pain management and spine surgery being planned. No gout PFSH All Active Problems Kidney stone on right side (Acute) Medical History Ulcerative colitis Chronic pain Neck and back pain IgA nephropathy Bleeding disorder ISTH BAT score of 7 Crohn's disease Surgical History History of bowel resection S/P cystoscopy with ureteral stent placement H/O inguinal hernia repair inguinal and umbilical repair with mesh. Hx of cholecystectomy History of appendectomy Social History Smoking/Tobacco Use Status: Current-Occasional Tobacco Type: e-cigarettes Smoking risk assessment performed?: Yes Alcohol Intake: current Alcohol Intake frequency: 0-2 drinks per day Alcohol type: beer Drug use: Never Substance use type: does not use Housing: house Do you feel safe at home: Yes Do you feel safe in your relationship?: Yes Meds Allergies and Home Medications Allergies Allergy/AdvReac Type Severity Reaction Status Date / Time Androgenic Anabolic Steroid Allergy Unknown Verified 01/25/24 09:07 Neuromuscular Blockers, Allergy Unknown Verified 01/25/24 09:07 Steroidal NSAIDS (Non-Steroidal Allergy Other (See Verified 01/25/24 09:07 Anti-Inflamma Comment) Sulfa (Sulfonamide Allergy Skin Rash Verified 01/25/24 09:07 Antibiotics) Home Medications ?Medication ?Instructions ?Recorded ?Confirmed ?Type buprenorphine 10 mcg/hour weekly 1 patch transdermal Q7D 01/19/24 01/25/24 History transdermal patch (Butrans) dextroamphetamine-amphetamine 15 15 mg PO BID 01/19/24 01/25/24 History mg tablet (Adderall) naloxone 4 mg/actuation nasal 4 mg intranasal Q2M PRN opioid 01/19/24 01/25/24 Rx spray (Narcan) overdose #2 ea hydromorphone 4 mg tablet 4 mg PO Q6H PRN pain #12 tabs 01/22/24 01/25/24 Rx (Dilaudid) lorazepam 0.5 mg tablet (Ativan) 0.5 mg PO TID PRN anxiety #10 tabs 01/22/24 01/25/24 Rx phenazopyridine 200 mg tablet 200 mg PO TID #20 tabs 01/22/24 01/25/24 Rx (Pyridium) polyethylene glycol 3350 17 8.5 g PO DAILY PRN 01/23/24 01/25/24 History gram/dose oral powder (Miralax) acetaminophen 500 mg capsule 1,000 mg PO Q6H PRN 01/25/24 01/25/24 History penicillin V potassium 500 mg 500 mg PO QID 01/25/24 01/25/24 History tablet Exam Const General: cooperative and comfortable Neck Neck: supple Resp Effort & Inspection: normal respiratory effort Auscultation: clear to auscultation bilaterally Cardio Rate: regular rate Rhythm: regular rhythm GI Palpation: soft and no masses Neuro General: patient alert, patient awake and patient oriented x3 Results Last Vital Signs Temp 36.3 C L 01/25/24 09:09 Pulse 81 01/25/24 09:09 Resp 16 01/25/24 09:09 BP 141/103 H 01/25/24 09:09 Pulse Ox 98 01/25/24 09:09 Time Spent Time spent with Patient: <40 minutes Time was spent: other
[2024-01-25] MEDS: Lidocaine 2% Jelly 11 ML SYR (11:50)
[2024-01-25] MEDS: Omnipaque 300 MG/ML 50 ML BTL (11:50)
--- NOTE | 2024-01-25 12:03 | W.PM.OP ---
Date of service: 01/25/24 Time of Service: 12:03 Operative Note Operative Note DATE OF PROCEDURE: 01/25/24 PRE-OP DIAGNOSIS: Right ureteral stone POST-OP DIAGNOSIS: same PROCEDURE: cystoscopy with removal of right ureteral stent, right retrograde pyelogram, right ureteroscopy with extraction of stone SURGEON: Vinh Lerma ANESTHESIA TYPE: Local By Surgeon and General:No Airway Refer to Anesthesia Record ESTIMATED BLOOD LOSS: 5 PATHOLOGY: other (right ureteral stone for chemical analysis) COMPLICATIONS: None Patient was transported to: PACU Patient's condition: stable Implants: none Indications: This is a 43-year-old gentleman who has a history of urolithiasis. He has had multiple procedures in the past, but they have all been at a different institution. He recently moved to our area and developed renal colic. When he was seen in the emergency department, he had a 6 mm stone in the right ureter. His pain could not be well-controlled, so we brought him to the operating room and placed a ureteral stent. He comes in now for stent removal and ureteroscopy with stone removal Findings: Right ureteral stone at the pelvic brim Procedure Description: The patient was brought to the operating room on 01/25/2024. He was given a dose of IV gentamicin. After successful induction of general anesthesia, he was placed in the dorsal lithotomy position. His genitalia was prepped and draped. 2% Xylocaine jelly was instilled into the urethra to act as a local anesthetic. A 22 English rigid cystoscope was passed through the urethra into the bladder. The urethra and bladder were inspected with the 30 degree lens. The pendulous, bulbar and membranous urethra appeared normal with no strictures. The prostatic urethra showed no suspicious mucosal changes. The bladder neck was entered and the bladder mucosa was inspected. The stent could be seen protruding from the right ureteral orifice. The stent was grasped and brought out to the level of the urethral meatus. A guidewire was then passed through the lumen of the stent and the stent was removed once the wire was seen progressing up the right ureter. A dual-lumen catheter was advanced over the wire and a retrograde pyelogram was obtained by injecting Omnipaque through the second lumen of the dual-lumen catheter. We are able to outline a stone just below the pelvic brim. I removed the dual-lumen catheter leaving the wire in place. I then passed a semirigid ureteroscope through the urethra and up the right ureter until the stone was seen. The stone was grasped in a Annamarie stone basket and removed in its entirety. The stone was then sent to pathology for permanent section. We elected not to replace the ureteral stent. We removed the guidewire. The patient tolerated this procedure well with no complications. He was taken to the recovery room in stable condition.
--- NOTE | 2024-01-25 12:05 | DI.RAD_ITS ---
Exam(s) XR RETROGRADE IN OR EXAM: XR RETROGRADE IN OR CLINICAL HISTORY: KIDNEY STONE RIGHT SIDE. TECHNIQUE: Fluoroscopy was provided for the referring physician for guidance with performing retrogr lorelei procedure. COMPARISON: No exams were available for comparison FINDINGS: Please see procedure note for details. Fluoro time: 11.5 seconds RADIATION DOSE DELIVERED: Aliar=1.15 mGy
--- NOTE | 2024-01-25 12:06 | W.PM.DSUDISC ---
Date of service: 01/25/24 Time of Service: 12:06 Discharge Plan Disposition Patient Disposition: Home Discharge Details Reason For Visit: ureteroscopy Attending Provider: Vinh Lerma Primary Care Provider: Maritza Pulliam Home Meds and New Rx's Prescriptions: No Action naloxone [Narcan] 4 mg/actuation spray,non-aerosol 4 mg intranasal Q2M PRN (Reason: opioid overdose) Qty: 2 0RF Rx Instructions: spray 1 dose into ONE nostril; alternate nostrils w each dose until help arrives phenazopyridine [Pyridium] 200 mg tablet 200 mg PO TID Qty: 20 0RF hydromorphone [Dilaudid] 4 mg tablet 4 mg PO Q6H MDD 4 PRN (Reason: pain) Qty: 12 0RF Rx Instructions: may take along with tylenol lorazepam [Ativan] 0.5 mg tablet 0.5 mg PO TID PRN (Reason: anxiety) Qty: 10 0RF polyethylene glycol 3350 [Miralax] 17 gram/dose powder 8.5 g PO DAILY PRN dextroamphetamine-amphetamine [Adderall] 15 mg tablet 15 mg PO BID Rx Instructions: administer doses at least 4-6 hours apart buprenorphine [Butrans] 10 mcg/hour patch weekly 1 patch transdermal Q7D acetaminophen 500 mg capsule 1,000 mg PO Q6H PRN penicillin V potassium 500 mg tablet 500 mg PO QID Discharge Instructions Additional Instructions: followup 6 to 10 weeks for renal ultrasound in office and stone analysis no need to strain urine Discharge Orders Discharge Orders: Discharge Order (Routine); Ordered 01/25/24 Ordered By: Vinh Lerma DS: Diagnosis Discharge Diagnosis (1) Kidney stone on right side: Status: Acute
[2024-01-25] MEDS: HYDROmorphone 2 MG/ML SYR IVP ×2 (12:27→12:43)
[2024-01-25] MEDS: Normal Saline 10 ML VIAL IJ (12:27)
[2024-01-25] MEDS: Phenazopyridine 200 MG TAB PO (12:38)
--- NOTE | 2024-01-25 13:04 | W.ANESPOSTOP ---
Postoperative Evaluation Date, Time and Location Date Performed: 01/25/24 Time Performed: 13:04 Patient Location: Day Surgery Unit Vital Signs Most Recent Imported Vital Signs: Most Recent Vital Signs Temp Pulse Resp BP Pulse Ox 36.5 C 53 L 16 137/88 99 01/25/24 12:54 01/25/24 12:54 01/25/24 12:54 01/25/24 12:54 01/25/24 12:54 Pain Score Most Recent Pain Score: Most Recent Pain Score Pain Level 5 01/25/24 12:54 Assessment Mental Status: Awake (Alert & Oriented to Patient Baseline) Airway and Respiratory Function: Patent airway with normal (patient baseline) respiratory exam Cardiovascular Function: Hemodynamically Stable Hydration Status: Adequately Hydrated Nausea & Vomiting: No Nausea or Vomiting Pain: Pain is tolerable per patient Peripheral Nerve Block: Patient did not receive a nerve block
[2024-02-01 17:05] LABS: Source: Right Ureter
== END 2024-01-25 13:43 | disposition home or self-care (01) ==
PROVIDERS: PCP Physician Assistant; Visit Provider Urology
PROC: 0TJ98ZZ Inspection of Ureter, Via Natural or Artificial Opening Endoscopic (ICD-10-PCS; CPT 52352; principal; 2024-01-25 10:30)
DX: N20.1 Calculus of ureter (principal)
CPT/HCPCS: 52352; 74420; 82365; J1170; J1580; J1885; J2001; J2405; J2704; Q9967

== ENCOUNTER 2024-05-27 07:55 | Emergency (ER) | payer BC, SELFPAY ==
[2024-05-27 08:00] VITALS: BP 135/98; PULSE 89; RESP 18; TEMP 36.4; O2SAT 100
--- NOTE | 2024-05-27 08:00 | DI.RAD_ITS ---
Exam(s) XR CHEST 2V PA LATERAL EXAM: XR CHEST 2V PA LATERAL CLINICAL HISTORY: cough [id number] TECHNIQUE: 2D digital imaging was performed. Two views. COMPARISON: No exams were available for comparison FINDINGS: HEART: Normal size. Aorta: Not dilated. PULMONARY VASCULATURE: Normal. MEDIASTINUM: Unremarkable. LUNGS: Clear. PLEURAL SPACE: No pleural effusion or pneumothorax. BONE:Unremarkable for age. SOFT TISSUES: Unremarkable. IMPRESSION: No acute abnormality. DATA REPOSITORY: RADIATION DOSE DELIVERED:
[2024-05-27 08:03] VITALS: PULSE 88; RESP 18; TEMP 36.4; O2SAT 100
--- NOTE | 2024-05-27 08:43 | ED.GENADUL_ITS ---
Discharge Plan Disposition Patient Disposition: Home Condition: Stable Discharge Details Clinical Impression: Upper respiratory infection Primary Care Provider: Maritza Pulliam ED Provider: Charanjit Montilla Home Meds and New Rx's Prescriptions: New azithromycin 250 mg tablet See Rx Instructions .ROUTE .COMPLEX Qty: 6 0RF Rx Instructions: For 250 mg dose pack: take 500 mg today (day 1), then 250 mg for 4 days (days 2-5) Continued naloxone [Narcan] 4 mg/actuation spray,non-aerosol 4 mg intranasal Q2M PRN (Reason: opioid overdose) Qty: 2 0RF Rx Instructions: spray 1 dose into ONE nostril; alternate nostrils w each dose until help arrives dextroamphetamine-amphetamine [Adderall] 15 mg tablet 15 mg PO BID Rx Instructions: administer doses at least 4-6 hours apart buprenorphine [Butrans] 10 mcg/hour patch weekly 1 patch transdermal Q7D acetaminophen 500 mg capsule 1,000 mg PO Q6H PRN Discharge Instructions Instructions: Azithromycin (Systemic), Bacterial Upper Respiratory Infection, Adult, Albuterol Additional Instructions: You were seen in the emergency department for your 2 weeks of upper respiratory infection, have sent a 5-day course of azithromycin to your pharmacy, please use therapeutic dosing of Tylenol (acetamenophen) & Advil (ibuprofen) in an alternating fashion as follows: Take 1000mg of Tylenol every 6 hours without missing doses- that is 4 times per day. Penitentiary in between the Tylenol dosings, take 400-600mg of Advil also on a 6 hour schedule, that is also 4 times per day. The daily maximum dosing of Tylenol is 4000mg, and the daily maximum dosing of Advil is 2400mg. This is safe to do for weeks. Please note that some common cold medications & prescription pain medications may contain acetamenophen and you need to read OTC drug labels and factor that in to maximum daily dosings. I have sent you home with an albuterol inhaler to use for symptomatic shortness of breath, use this 2 puffs every 4 hours as needed. Your vitals are completely stable your oxygen is 100% and you are no increase in heart rate, please return to the emergency department for any respiratory distress, severe increase in chest pain, intractable nausea or vomiting Referrals: Maritza Pulliam [Primary Care Provider] - Discharge Data Discharge Date/Time-TO BE ENTERED AT DEPARTURE: 05/27/24 09:27 HPI General Date/Time Provider Initiated Documentation: 05/27/24 07:55 . HPI Narrative: 43 year-old male presents to ED today by POV/ambulating with a chief complaint of cough, chills, fatigue with onset 2 weeks ago. Quality described as severe cough, states he has not gotten out of bed in days, feels he has pneumonia, no radiation to severe shortness of breath, overt fevers, vomiting, lack of urine, severe abdominal pain, endorses chest irritation with coughing and productive green sputum. Severity is described as severe. Palliating factors include intermittent Tylenol/ibuprofen dosing, mucinex. Provoking factors include nothing specific. Patient not anticoagulated. Related Data Home Medications ?Medication ?Instructions ?Recorded ?Confirmed buprenorphine 10 mcg/hour weekly 1 patch transdermal Q7D 01/19/24 05/27/24 transdermal patch (Butrans) dextroamphetamine-amphetamine 15 15 mg PO BID 01/19/24 05/27/24 mg tablet (Adderall) naloxone 4 mg/actuation nasal 4 mg intranasal Q2M PRN opioid 01/19/24 05/27/24 spray (Narcan) overdose #2 ea acetaminophen 500 mg capsule 1,000 mg PO Q6H PRN 01/25/24 05/27/24 azithromycin 250 mg tablet See Rx Instructions PO .COMPLEX #6 05/27/24 tabs Previous Rx's ?Medication ?Instructions ?Recorded naloxone 4 mg/actuation nasal 4 mg intranasal Q2M PRN opioid 01/19/24 spray (Narcan) overdose #2 ea azithromycin 250 mg tablet See Rx Instructions PO .COMPLEX #6 05/27/24 tabs Allergies Allergy/AdvReac Type Severity Reaction Status Date / Time Androgenic Anabolic Steroid Allergy Unknown Verified 05/27/24 07:59 Neuromuscular Blockers, Allergy Unknown Verified 05/27/24 07:59 Steroidal NSAIDS (Non-Steroidal Allergy Other (See Verified 05/27/24 07:59 Anti-Inflamma Comment) Sulfa (Sulfonamide Allergy Skin Rash Verified 05/27/24 07:59 Antibiotics) General Stated Complaint: RespSymp LORETTA: 3 Review of Systems All systems reviewed & are unremarkable except as noted in HPI and below Exam Narrative Exam Narrative: GENERAL APPEARANCE: Well-nourished, non-toxic, awake and alert, atraumatic, no acute distress. SKIN: Warm, pink, dry, intact, without rashes/lesions/ulcerations. HEAD: Normocephalic, atraumatic, normal hair distribution for gender/age. EYES: Normal conjunctiva, no exudates on lids/lashes. ENT: Nares patent, no circumoral cyanosis, no facial swelling NECK: Supple, trachea midline, painless cervical ROM. LUNGS/CHEST: Lungs CTA bilaterally, non-labored respirations, normal A/P diameter, symmetrical expansion, no chest wall deformity HEART (CV/PV): Regular rate and rhythm without murmur, no peripheral edema, no JVD. ABDOMEN: Soft, non-distended, no guarding. MSK: Normal ROM, no swelling/deformity to bilateral UEs or LEs, moving all extremities without weakness, no cyanosis, spine midline without tenderness, normal curvature. NEURO: Mental Status AAOx4 - alert to person, place, time, events No facial droop, no forehead involvement. Motor: No focal weakness - strength 5/5 in bilateral UEs and LEs, proximal and distal, symmetric. Sensory: sensation intact to light touch globally. Gait normal: patient ambulated without ataxia into ED room. PSYCH: euthymic, cooperative, pleasant, appropriate speech Course Vital Signs Vital signs: Vital Signs Temperature 36.4 C 05/27/24 08:00 Pulse 89 05/27/24 08:00 Respiratory Rate 18 05/27/24 08:00 Blood Pressure 135/98 H 05/27/24 08:00 Pulse Oximetry 100 05/27/24 08:00 Temperature 36.4 C 05/27/24 08:03 Temperature Source Oral 05/27/24 08:03 Pulse 88 05/27/24 08:03 Respiratory Rate 18 05/27/24 08:03 Respiratory Effort Normal, Non-Labored 05/27/24 08:03 Respiratory Depth Normal 05/27/24 08:03 Blood Pressure 135/98 H 05/27/24 08:00 Blood Pressure Position Sitting 05/27/24 08:00 Pulse Oximetry 100 05/27/24 08:03 Oxygen Delivery Method Room Air 05/27/24 08:03 Oxygen Flow Rate 0 05/27/24 08:00 Pain Level 7 05/27/24 08:03 Comment has patch for pain 05/27/24 08:03 Medical Decision Making This dictation utilizes [id number] dictation software and may contain unedited grammatical errors. 43 year-old male presents to ED today by POV/ambulating with a chief complaint of cough, chills, fatigue with onset 2 weeks ago. Quality described as severe cough, states he has not gotten out of bed in days, feels he has pneumonia, no radiation to severe shortness of breath, overt fevers, vomiting, lack of urine, severe abdominal pain, endorses chest irritation with coughing and productive green sputum. Severity is described as severe. Palliating factors include intermittent Tylenol/ibuprofen dosing, mucinex. Provoking factors include nothing specific. Patients' medical history: Chronic pain, Crohn's disease, ulcerative colitis. Family and social history: Vapes and smokes marijuana denies tobacco use, no recent travel. Pertinent exam findings / vital signs include lungs CTA, benign abdomen, nontoxic vitals. Differential / pathologies of concern include upper respiratory infection, pneumonia. Diagnostic studies of: -X-ray chest, respiratory PCR swab. -X-ray without focal abnormality, PCR swab negative Interventions of: -Empiric antibiotics due to patient's length of illness, provided albuterol inhaler for symptomatic relief of shortness of breath. ED Course/Assessment/Plan: 43-year-old man presents with a bad cold for greater than 2 weeks, he endorses using regular doses of Mucinex and coughing up a lot of phlegm over the past 2 weeks but the illness is worsening especially last few days. His chest x-ray is benign, his lungs are CTA and he has no signs of respiratory distress, counseled on therapeutic dosing regimen of Tylenol and ibuprofen and provided albuterol inhaler for shortness of breath as well as outpatient antibiotics to treat for possible walking pneumonia, strict return criteria for respiratory distress. Findings not consistent with hypoxic respiratory failure, sepsis, pneumonia. Disposition of upper respiratory infection. Patient verbalized understanding of the plan and return to ED criteria and engaged in shared decision making. Medical Records Medical records reviewed: Yes I reviewed the patient's medical records. Imaging Data Radiologic Study: Attestation: I personally reviewed and interpreted this imaging study as follows: Imaging: X-Ray Radiologist's impression: EXAM: XR CHEST 2V PA LATERAL CLINICAL HISTORY: cough [id number] TECHNIQUE: 2D digital imaging was performed. Two views. COMPARISON: No exams were available for comparison FINDINGS: HEART: Normal size. Aorta: Not dilated. PULMONARY VASCULATURE: Normal. MEDIASTINUM: Unremarkable. LUNGS: Clear. PLEURAL SPACE: No pleural effusion or pneumothorax. BONE:Unremarkable for age. SOFT TISSUES: Unremarkable. IMPRESSION: No acute abnormality. Lab Data Lab results reviewed: Yes I reviewed the patient's lab results. Labs: Laboratory Tests Range/Units 05/27/24 08:08 COVID-19 Source Nasopharynx SARS-CoV-2 (PCR) (Negative) Negative Influenza Type A (PCR) (Negative) Negative Influenza Type B (PCR) (Negative) Negative RSV (PCR) (Negative) Negative Quality:SDOH Health Related Social Needs: No Data to Display PFSH All Active Problems (Updated 05/27/24 @ 08:56 by JUAN LUIS Alcantar) Upper respiratory infection (Acute) Kidney stone on right side (Acute) Medical History (Updated 05/27/24 @ 08:56 by JUAN LUIS Alcantar) Ulcerative colitis Chronic pain Neck and back pain IgA nephropathy Bleeding disorder ISTH BAT score of 7 Crohn's disease Surgical History History of bowel resection S/P cystoscopy with ureteral stent placement H/O inguinal hernia repair inguinal and umbilical repair with mesh. Hx of cholecystectomy History of appendectomy Social History Smoking/Tobacco Use Status: Current-Occasional Tobacco Type: e-cigarettes Smoking risk assessment performed?: Yes Alcohol Intake: current Alcohol Intake frequency: 0-2 drinks per day Alcohol type: beer Drug use: Never Substance use type: marijuana Housing: house Do you feel safe at home: Yes Do you feel safe in your relationship?: Yes
[2024-05-27 08:51] LABS: COVID-19 PCR Negative (Negative); Influenza A PCR Negative (Negative); Influenza B PCR Negative (Negative); RSV PCR Negative (Negative)
[2024-05-27 08:52] LABS: Source Nasopharynx
[2024-05-27] MEDS: Albuterol HFA 8 GM 60 PUFF INH IH (09:06)
[2024-05-27 09:07] VITALS: PULSE 76; RESP 16; TEMP 36.4; O2SAT 96
[2024-05-27] MEDS: Inhaler, Assist Device 1 EACH MC (09:07)
== END 2024-05-27 09:27 | disposition home or self-care (01) ==
LOC: ER 09:11
PROVIDERS: Emergency Provider Physician Assistant; PCP Physician Assistant
DX: J06.9 Acute upper respiratory infection, unspecified (principal); F17.290 Nicotine dependence, other tobacco product, uncomplicated
CPT/HCPCS: 87637; 99284; 71046; 99283